=== PATIENT | female | born 2000 | race Hispanic/Latino ===

== ENCOUNTER 2024-01-06 17:01 | Emergency (ER) | payer SELFPAY ==
[~2024-01-06] VITALS: Ht 142.2 cm; Wt 81.6 kg
[2024-01-06 17:11] VITALS: BP 131/76
[2024-01-06 17:15] VITALS: BP 125/78
[2024-01-06] MEDS ORDERED: FLOXIN OTIC0.3 % AS (17:18)
[2024-01-06] MEDS ORDERED: AMOX/K CLAV875 M1 PO (17:18)
[2024-01-06 17:22] VITALS: BP 131/76
== END 2024-01-06 17:27 | disposition home or self-care (01) | DRG 156 ==
LOC: ED 17:01
DX: H60.92 Unspecified otitis externa, left ear (principal)